=== PATIENT | male | born 1965 | race Caucasian/White ===

== ENCOUNTER → 2016-10-07 | Outpatient (CLI) | payer OTHER | END | disposition home or self-care (01) | LOC: GMAL 10:56 | PROVIDERS: ATTEND Family Medicine | DX: Z12.5 Encounter for screening for malignant neoplasm of prostate (principal); R97.20 Elevated prostate specific antigen [PSA]; E29.1 Testicular hypofunction ==

== ENCOUNTER → 2017-01-14 | Outpatient (CLI) | payer OTHER ==
--- NOTE | 2017-01-14 14:35 | MRI ---
EXAM DESCRIPTION: Lumbar Spine w/o Contrast CLINICAL HISTORY: 51 years,Male,LOW BACK PAIN COMPARISON: None TECHNIQUE: MRI before multiple sequences of the lumbar spine. FINDINGS: The vertebral bodies demonstrate normal signal and morphology. Spinal cord normal signal and morphology. Tip of the conus is at L1. Surrounding soft tissues unremarkable. L5-S1: Disk height is congenitally small disc space. There is no significant disc bulge. The facettes mild hypertrophic more so on the left and right. There is no spinal canal stenosis. There is mild/moderate left neural foraminal stenosis due to the facet hypertrophy. L4-5: Disk height is unremarkable. There is minimal disc bulge. The facettes mild hypertrophy. There is no spinal canal stenosis. There is minimal right neural foraminal stenosis. L3-4: Disk height is unremarkable. There is no significant disc bulge. The facettes rather mild hypertrophy. There is no spinal canal stenosis. There is no neural foraminal stenosis. L2-3: Disk height is unremarkable. There is mild posterior lateral disc bulges. The facettes mild hypertrophy. There is no spinal canal stenosis. There is no neural foraminal stenosis. L1-2: Disk height is mildly loss. There is mild annular disc bulges at by the worse in the entire lumbar spine and slightly worsened prior study and a small annular fissure on the superior aspect of the posterior disc bulge which is new. The facettes mild hypertrophic. There is no spinal canal stenosis. There is no neural foraminal stenosis. IMPRESSION: L1-2 demonstrates a mild disc bulge which is slightly worsened prior study with a new posterior superior annular fissure which itself can be a source of pain. Remainder lumbar spine demonstrates mostly mild to minimal disc bulges and mild facet arthropathy. But this did result in some mild to moderate left neural foraminal stenosis at L4-5-S1 and minimal neural foraminal stenosis on the right at L4-5. Electronically signed by: Daniel Gallagher MD 01/14/2017 2:33 PM CDT
== END ==
LOC: MRI 07:49
PROVIDERS: ATTEND Family Medicine
DX: M54.5 Low back pain (principal); M51.86 Other intervertebral disc disorders, lumbar region

== ENCOUNTER 2017-02-21 02:27 | Emergency (ER) | payer OTHER ==
[2017-02-21] MEDS ORDERED: KETOROLAC TROMETHAMINE INJ 30 MG/ML VIAL IV ONE ×2 (02:35→02:36)
[2017-02-21] MEDS ORDERED: ONDANSETRON INJ 4 MG/2 ML VIAL IV ONE (02:35)
[2017-02-21] MEDS ORDERED: SODIUM CHLORIDE 0.9% 1000ML 1,000 ML IVS ONE ×2 (02:36→04:10)
[2017-02-21 02:47] VITALS: TEMP 97.3
[2017-02-21] MEDS ORDERED: HYDROmorphone HCL INJ 2 MG/ML VIAL IV ONE ×2 (02:47→03:06)
--- NOTE | 2017-02-21 02:48 | ED.PDOC ---
History of Present Illness - General Chief Complaint: Abdominal Pain Stated Complaint: L sided pain Time Seen by Provider: 02/21/17 02:32 Information Source: patient, RN notes reviewed, Vital Signs reviewed Exam Limitations: no limitations - History of Present Illness Initial Comments: Patient presents to the ER with sudden onset of LUQ/L flank pain that woke him from sleep. Pain is excruciating. Can't qualify his pain. Writhing in bed. + nausea. Denies any other symptoms. No radiation of pain. Abdominal Pain Onset Location: LUQ, flank - left Pain Radiation: no radiation Quality: severe Timing/Duration: 1/2 hour Improving Factors: nothing Worsening Factors: nothing Associated Symptoms: nausea/vomiting Review of Systems - Review of Systems Constitutional: States: no symptoms reported EENTM: States: no symptoms reported Respiratory: States: no symptoms reported Cardiology: States: no symptoms reported Gastrointestinal/Abdominal: States: see HPI, abdominal pain, nausea. Denies: diarrhea, vomiting Genitourinary: States: no symptoms reported. Denies: dysuria, frequency, pain Musculoskeletal: States: no symptoms reported Skin: States: no symptoms reported Neurological: States: no symptoms reported All other Systems: No Change from Baseline Past Medical History (General) - Patient Medical History Hx Congestive Heart Failure: No Hx Diabetes: No Hx MRSA: Yes - Nasal Swab 2014 Family Medical History - Family History Grandparents Family History: Unknown Physical Exam - Physical Exam General Appearance: Agitated, Obvious distress - writhing around on the bed, Well Developed, Well Groomed, Well Hydrated, Well Nourished Neck: non-tender, full range of motion, supple, normal inspection Respiratory: chest non-tender, lungs clear, normal breath sounds, no respiratory distress, no accessory muscle use Cardiovascular/Chest: regular rate, rhythm, no gallop, no murmur Gastrointestinal/Abdominal: normal bowel sounds, guarding, tenderness - LUQ w/o rebound Back Exam: no CVA tenderness Extremity: normal range of motion, non-tender, normal inspection, no pedal edema Neurologic: alert, oriented x 3 Skin Exam: normal color, warm/dry Comments: Vital Signs 02/21/17 02:35 Temperature 97.3 F L Pulse Rate [R 71 Arm] Respiratory 22 Rate Blood Pressure 149/115 [R Arm] O2 Sat by Pulse 98 Oximetry Progress - Progress Progress: 02/21/17 02:51 Patient given Toradol 30mg IV and Zofran 4mg IV w/o improvement so will give Dilaudid 1mg IV 02/21/17 03:06 Patient still moaning and crying out in pain. Will give another 1mg of Dilaudid. 02/21/17 03:34 Patient is feeling better. Blood work looks good. Still awaiting urine and CT results. - Results/Orders Results/Orders: Laboratory Tests 02/21/17 02/21/17 02/21/17 02:30 02:30 03:35 WBC 5.3 RBC 4.55 L Hgb 15.2 Hct 44.7 MCV 98.1 H MCH 33.4 H MCHC 34.1 RDW 13.6 Plt Count 277 MPV 7.3 L Absolute Neuts (auto) 2.80 Absolute Lymphs (auto) 1.70 Absolute Monos (auto) 0.70 Absolute Eos (auto) 0.00 Absolute Basos (auto) 0.10 Neutrophils % 53.4 Lymphocytes % 31.1 Monocytes % 13.5 H Eosinophils % 0.9 L Basophils % 1.1 Sodium 140 Potassium 3.9 Chloride 103 Carbon Dioxide 26 Anion Gap 14.9 BUN 20 H Creatinine 1.00 BUN/Creatinine Ratio 20.0 Random Glucose 105 Serum Osmolality 282.4 Calcium 9.6 Total Bilirubin 0.5 AST 30 ALT 31 Alkaline Phosphatase 48 Serum Total Protein 6.8 Albumin 4.5 Globulin 2.3 Albumin/Globulin Ratio 2.0 H Urine Color Yellow Urine Appearance Clear Urine pH 7.0 Ur Specific [place] 1.015 Urine Protein Negative Urine Glucose (UA) Negative Urine Ketones 15 H Urine Blood Trace-intact H Urine Nitrite Negative Urine Bilirubin Negative Urine Urobilinogen 0.2 Ur Leukocyte Esterase Negative Urine RBC 0 Urine WBC 0 Ur Epithelial Cells 0 Amorphous Sediment Trace Urine Bacteria 0 - EKG/XRAY/CT CT Ordered: Yes - 4mm stone in L kidney, 3mm stone in bladder, mild hydroureter per Rad Departure - Departure Clinical Impression: Kidney stone on left side, Hydroureter on left Disposition: Discharge to Home or Self Care Condition: Good Departure Forms: ED Discharge - Pt. Copy, Patient Portal Self Enrollment Instructions: DI for Kidney Stones Diet: resume usual diet - Increase water/fluid intake. Activity: increase activity as tolerated Referrals: Daniel Mckinnon III, MD [Primary Care Provider] - 1-2 Weeks Prescriptions: HYDROcodone 7.5MG/APAP 325MG [[place] 7.5/325] 1 ea PO Q4 PRN #15 tab PRN Reason: Moderate To Severe Pain Home Medications: Ambulatory Orders HYDROcodone 7.5MG/APAP 325MG [[place] 7.5/325] 1 ea PO Q4 PRN #15 tab 02/21/17
--- NOTE | 2017-02-21 03:45 | CT ---
Procedure: CT ABDOMEN PELVIS WITHOUT IV CONTRAST Exam Date: 02/21/2017 Ordering Provider: Loretta Thacker Clinical Indication: LUQ/Flank pain Comparison: None TECHNIQUE: Unenhanced 5 mm images were taken through the abdomen and pelvis without the administration of oral contrast material. Coronal and sagittal reformatted images were generated. This exam was performed according to our departmental dose optimization program which includes use of automated exposure control, adjustment of the mA and/or kV according to patient size and/or use of iterative reconstruction technique. FINDINGS: Lower chest: Nonacute Abdomen: Liver and biliary system: No gross liver lesions on this noncontrast examination. No biliary ductal dilatation. No calcified gallstones. Spleen: Unremarkable Pancreas: Unremarkable Adrenal glands: Unremarkable Kidneys, ureters, bladder: 4 mm stone in the interpolar left kidney. There is mild hydronephroureter on the left. There is a 3 mm calcification within the urinary bladder which likely represents a passed stone. Urinary bladder is otherwise unremarkable. No hydronephrosis in the right kidney. Lymph nodes: No lymphadenopathy Retroperitoneum, peritoneal cavity, abdominal wall : No ascites. No free intraperitoneal air. Vessels: No abdominal aortic aneurysm. Pelvis: Lymph nodes: No lymphadenopathy Peritoneal cavity: No pelvic free fluid Bowel: No bowel obstruction. Colonic diverticulosis without evidence of diverticulitis. Normal appendix. No bowel wall thickening. Pelvic organs: Prostate calcifications and borderline enlargement. Bones: Nonacute IMPRESSION: 1. 4 mm nonobstructing stone in the interpolar left kidney. There is mild hydronephroureter on the left. There is a 3 mm calcification within the urinary bladder which likely represents a passed stone. 2. Colonic diverticulosis without evidence of diverticulitis. Electronically signed by: Jose Mccoy MD 02/21/2017 3:44 AM CDT
[2017-02-21 05:58] VITALS: BP 115/82; O2SAT 92
== END 2017-02-21 06:10 | disposition home or self-care (01) ==
LOC: ER 02:27
DX: N13.4 Hydroureter (principal); N20.0 Calculus of kidney; N21.0 Calculus in bladder
CPT/HCPCS: 36415; 74176; 80053; 81001; 85025; J1170; J1885; J2405; J7030

== ENCOUNTER → 2018-07-07 | Outpatient (CLI) | payer OTHER | LOC: GMAL 12:25 | PROVIDERS: ATTEND Family Medicine | DX: Z00.00 Encounter for general adult medical examination without abnormal findings (principal); Z12.5 Encounter for screening for malignant neoplasm of prostate ==

== ENCOUNTER → 2018-09-27 | Outpatient (CLI) | payer OTHER ==
--- NOTE | 2018-09-27 11:19 | RAD ---
EXAM DESCRIPTION: Radiographs of the right Shoulder:XR/CR/DR CLINICAL HISTORY: PAIN IN RIGHT SHOULDER COMPARISON: Radiographs of the right clavicle on the same visit. TECHNIQUE: 4 views. Internal and external rotation. Scapular "Y" image.. Axillary image right shoulder. FINDINGS: No fracture right shoulder. Normal bone density. AC joint maintained. Slight downsloping of the lateral acromion. Glenohumeral joint intact. No abnormal radiodense objects in the soft tissues or joint spaces. IMPRESSION: No fracture dislocation right shoulder. Minimal downsloping of the right lateral, and may be narrowing the supraspinatus tendon outlet. No significant arthrosis. Electronically signed by: Brian Abbott MD 09/27/2018 11:17 AM [facility]
--- NOTE | 2018-09-27 11:21 | RAD ---
EXAM DESCRIPTION: Clavicle,Right: ELISE/ CLINICAL HISTORY: 53 years Male, PAIN IN RIGHT SHOULDER COMPARISON: Radiographs of the right shoulder. MRI scan lumbar spine on the same visit. TECHNIQUE/FINDINGS: 2 views right clavicle. IMPRESSION: Normal bone density. No fracture or dislocation. No significant arthrosis in the right AC joint. Electronically signed by: Brian Abbott MD 09/27/2018 11:19 AM [facility]
--- NOTE | 2018-09-27 19:34 | MRI ---
EXAM DESCRIPTION: Lumbar Spine w/o Contrast : Magnetic Resonance Imaging. CLINICAL HISTORY: M54.16 COMPARISON: MRI lumbar spine 01/14/2017. TECHNIQUE: Multiplanar, multiple standard sequences, non contrast MRI, lumbar spine. FINDINGS: The spinal canal normal marrow AP diameter is 13 mm or less from the L1-2 level down to L5-S1 level which appears to be predominantly due to shortening of the pedicles which is most likely congenital. Normal marrow signal in the pedicles. This can also be seen on the prior study. L1-2: Disc desiccation and minimal disc space loss. Anterior Modic type I endplate reactive changes with disc bulging and endplate ridging. This has progressed since the prior study. Posterior disc bulging. AP canal diameter is 11 mm. Posterior elements unremarkable. No significant foraminal narrowing. Stable since the prior study. L5-S1: Minimal disc space loss with normal signal in the disc. No posterior bulging. Minimal arthrosis in the left facet joint. AP canal diameter 9 mm. Mild left foraminal narrowing. Stable since the prior study. L4-5: Minimal disc desiccation and minimal disc space loss. Tiny posterior bulge in the midline. Posterior elements unremarkable. AP canal diameter 9 mm. Mild left foraminal narrowing and moderate right foraminal narrowing. Stable since the prior study. L3-4: Normal signal in the disc with disc space preserved. Posterior elements unremarkable. AP canal diameter 12 mm. Bilateral foramina are patent. Stable since the prior study. L2-3: Normal signal in the disc. Concavity of the superior and inferior endplate. Tiny Modic type II anterior endplate reactive changes. Disc bulge into the right foramen abutting the exiting right L2 nerve. Mild narrowing of the left foramen. T12-L1: Normal signal in the disc and disc space preserved. Posterior elements unremarkable. Canal and foramina are patent. Conus terminates at this level. Anatomic alignment and curvature. Paravertebral soft tissues unremarkable.. Normal marrow signal in the remaining vertebral bodies and the posterior elements. Vertebral bodies are not compressed at any level. IMPRESSION: 1. 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 No abnormal marrow signal in the pedicles and no significant arthrosis in the facet joints. Stable since the prior study. 2. L1-2 spondylosis and moderate canal narrowing. Anterior endplate ridging and disc bulging has progressed since the prior study December 2016. 3. Borderline to mild central canal stenosis at L4-5 and L5-S1. Tiny posterior bulge at L4-5. Disc bulge into the right foramen with moderate narrowing. No posterior bulging of the L5-S1 disc with minimal arthrosis in the left facet joint. These findings are stable since the prior study. Electronically signed by: Brian Abbott MD 09/27/2018 7:31 PM [facility]
== END ==
LOC: MRI 07:16
PROVIDERS: ATTEND Orthopaedic Surgery
DX: M51.16 Intervertebral disc disorders with radiculopathy, lumbar region (principal); M47.896 Other spondylosis, lumbar region; M25.511 Pain in right shoulder

== ENCOUNTER → 2018-10-05 | Outpatient (CLI) | payer OTHER ==
--- NOTE | 2018-10-05 09:16 | MRI ---
MRI sternoclavicular joints INDICATION: Right side clavicle and shoulder pain no specific injury TECHNIQUE: MR imaging of the sternoclavicular joints without contrast FINDINGS: There is mild osteoarthrosis with synovial thickening/hypertrophy of the bilateral sternoclavicular joints. No dislocation. No destructive process. No clavicular fracture or destructive process. Bilateral small ganglia along the inferior aspect of the sternoclavicular joints. No sternal fracture. No soft tissue mass. Ascending aorta is prominent in diameter measuring just over 4 cm. Correlate with auscultation to exclude murmur. This is ectatic or borderline aneurysmal. Echocardiogram can be useful to exclude aortic valvular disease/stenosis. 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
== END ==
LOC: MRI 07:09
PROVIDERS: ATTEND Orthopaedic Surgery
DX: M19.011 Primary osteoarthritis, right shoulder (principal); M25.511 Pain in right shoulder

== ENCOUNTER → 2019-06-22 | Outpatient (CLI) | payer OTHER | LOC: GMAL 11:34 | PROVIDERS: ATTEND Family Medicine | DX: E29.1 Testicular hypofunction (principal); R53.82 Chronic fatigue, unspecified; Z12.5 Encounter for screening for malignant neoplasm of prostate; Z13.220 Encounter for screening for lipoid disorders; Z79.899 Other long term (current) drug therapy ==

== ENCOUNTER → 2019-07-29 | Outpatient (CLI) | payer OTHER | LOC: GMAL 10:40 | PROVIDERS: ATTEND Family Medicine | DX: M79.642 Pain in left hand (principal) ==

== ENCOUNTER → 2020-05-29 | Outpatient (CLI) | payer OTHER | LOC: GMAL 16:46 | PROVIDERS: ATTEND Family Medicine | DX: D51.3 Other dietary vitamin B12 deficiency anemia (principal); E29.8 Other testicular dysfunction; R53.82 Chronic fatigue, unspecified; E55.9 Vitamin D deficiency, unspecified; Z12.5 Encounter for screening for malignant neoplasm of prostate ==

== ENCOUNTER → 2020-09-17 | Outpatient (CLI) | payer BC | LOC: GMAL 14:17 | PROVIDERS: ATTEND Family Medicine | DX: D51.3 Other dietary vitamin B12 deficiency anemia (principal); Z79.899 Other long term (current) drug therapy; E29.8 Other testicular dysfunction ==

== ENCOUNTER → 2020-10-04 | Outpatient (CLI) | payer BC ==
--- NOTE | 2020-10-05 08:40 | MRI ---
Study: MRI of the Right Knee. Indication: PAIN Technique: Multiplanar, multi sequence MRI of the right knee was obtained without intravenous contrast. Comparison: None Findings: ACL, PCL, lateral collateral ligament complex intact. Grade 1 MCL sprain with mild bowing and surrounding edema. Oblique undersurface tearing posterior horn/root and body medial meniscus with subtle free edge fraying as well. Mild discoid lateral meniscus configuration without tear. Subtle areas of grade 2 chondrosis medial and lateral knee compartments. Tendinosis and mild interstitial fissuring quadriceps tendon insertion. Patellar tendon intact. Patella normally located. TT-TG distance measures 14 mm. Patchy heterogeneous areas of grade 3-4 chondral fissuring of the patellar apex extending into the medial and lateral facets with mild cortical remodeling and subchondral marrow change. Small knee effusion. Mild thickening medial patellar plica. No acute fracture. Mild anterior subcutaneous edema. Impression: Oblique undersurface tearing and free edge fraying posterior horn/body medial meniscus. Mild discoid configuration lateral meniscus without tear. 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 Tendinosis and mild interstitial fissuring quadriceps tendon insertion. Heterogeneous grade 3/4 chondral fissuring central patella. Small knee effusion. Electronically signed by: Zacarias Borja MD 10/05/2020 8:38 AM [facility]
== END ==
LOC: MRI 14:04
PROVIDERS: ATTEND Family Medicine
DX: M25.461 Effusion, right knee (principal); M22.8X1 Other disorders of patella, right knee; S83.241A Other tear of medial meniscus, current injury, right knee, initial encounter; M23.361 Other meniscus derangements, other lateral meniscus, right knee; M76.891 Other specified enthesopathies of right lower limb, excluding foot; M94.261 Chondromalacia, right knee; M94.8X6 Other specified disorders of cartilage, lower leg